=== PATIENT | female | born 1945 | race Caucasian/White ===

== ENCOUNTER → 2016-07-19 | Outpatient (REF) | payer MEDICARE, OTHER ==
[2016-07-19 11:51] LABS: MEAN CORPUSCULAR HEMOGLOBIN 33.3 pg (27.0-33.0); MEAN CORPUSCULAR HGB CONC 34.5 g/dl (32.0-36.5); MEAN CORPUSCULAR VOLUME 96.7 fl (80.0-96.0); RED CELL DISTRIBUTION WIDTH 12.3 % (11.5-14.5)
[2016-07-19 12:50] LABS: ALKALINE PHOSPHATASE 96 U/L (45-117); ALT/SGPT 25 U/L (12-78); ANION GAP 9 MEQ/L (8-16); AST/SGOT 17 U/L (15-37); BILIRUBIN,TOTAL 0.6 MG/DL (0.2-1.0); BLOOD UREA NITROGEN 16 MG/DL (7-18); CALCIUM LEVEL 8.8 MG/DL (8.8-10.2); CARBON DIOXIDE LEVEL 28 MEQ/L (21-32); CHLORIDE LEVEL 105 MEQ/L (98-107); CHOLESTEROL LEVEL 169 MG/DL (<200); CREATININE FOR GFR 0.77 MG/DL (0.55-1.02); GLOMERULAR FILTRATION RATE > 60.0 (>39); GLUCOSE, FASTING 109 MG/DL (83-110); SODIUM LEVEL 142 MEQ/L (136-145); TOTAL PROTEIN 6.5 GM/DL (6.4-8.2); TRIGLYCERIDES LEVEL 68 MG/DL (<150)
== END ==
LOC: M SFHCCLAY 09:04
PROVIDERS: ATTEND Family Medicine
DX: E78.00 Pure hypercholesterolemia, unspecified (principal); C50.919 Malignant neoplasm of unspecified site of unspecified female breast

== ENCOUNTER → 2016-09-21 | Outpatient (CLI) | payer MEDICARE, OTHER ==
--- NOTE | 2016-09-22 07:54 | RADONC ---
RADIATION ONCOLOGY FOLLOW UP NOTE DATE: 09/21/2016 CHART NUMBER: [id number] DIAGNOSIS: Right breast cancer stage II A, T2N0M0, ECOG performance status zero. FOLLOWUP NOTE: Ms. 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 The patient presents today reporting that she is doing quite well with no complaints at this time related to her radiation therapy disease. She has no breast or bone pain. REVIEW OF SYSTEMS: The patient's review of systems is noncontributory. Denies nausea, vomiting, fevers, chills, night sweats, diplopia, headaches, anxiety or depression, anorexia, weight loss, visual disturbances, chest pain, urinary or bowel difficulties, bone pain, or neurological problems. PHYSICAL EXAMINATION: The patient is a well-developed, well-nourished 71-year-old woman in no acute distress. HEENT exam is normocephalic, atraumatic. Extraocular movements are intact. There is no palpable cervical, supraclavicular, infraclavicular, axillary, or inguinal lymphadenopathy present. Lungs are clear to auscultation and percussion. Heart has a regular rate and rhythm. Abdomen is benign with no hepatosplenomegaly, masses, or tenderness. Breast examination reveals no masses or discharge bilaterally. Skeletal examination reveals no tenderness to pressure or percussion of the bony skeleton. Extremities reveal no clubbing, cyanosis, or edema. Neurologic exam is grossly intact, as is the remainder of the physical examination. ASSESSMENT: The patient is clinically KAYY at this time and will be seen by us again in 6 months for further followup. She will also continue be followed by her other physicians as well. cc: *Roosevelt Ramos MD
== END ==
LOC: M ONCR 14:26
PROVIDERS: ATTEND Radiology Radiation Oncology
DX: C50.811 Malignant neoplasm of overlapping sites of right female breast (principal)

== ENCOUNTER → 2017-03-29 | Outpatient (CLI) | payer MEDICARE, OTHER ==
--- NOTE | 2017-03-30 09:20 | RADONC ---
RADIATION ONCOLOGY FOLLOWUP NOTE DATE: 03/29/2017 CHART NUMBER: [id number] DIAGNOSIS: Right breast cancer. STAGE: Stage II A, T2N0M0 ECOG PERFORMANCE SCORE: Zero FOLLOWUP NOTE: Ms. 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 She was presenting to us today for routine followup visit 1 year and 8 months post completion of external beam radiation therapy. The patient presents today reporting that she is doing quite well with no complaints at this time related to her radiation therapy or disease. She has no significant breast or bone pain. REVIEW OF SYSTEMS: The patient's review of systems is noncontributory. Denies nausea, vomiting, fevers, chills, night sweats, diplopia, headaches, anxiety or depression, anorexia, weight loss, visual disturbances, chest pain, urinary or bowel difficulties, bone pain, or neurological problems. PHYSICAL EXAMINATION: The patient is a well-developed, well-nourished female in no acute distress. HEENT exam is normocephalic, atraumatic. Extraocular movements are intact. There is no palpable cervical, supraclavicular, infraclavicular, axillary, or inguinal lymphadenopathy present. Lungs are clear to auscultation and percussion. Heart has a regular rate and rhythm. Abdomen is benign with no hepatosplenomegaly, masses, or tenderness. Breast examination reveals no masses or discharge bilaterally. Skeletal examination reveals no tenderness to pressure or percussion of the bony skeleton. Extremities reveal no clubbing, cyanosis, or edema. Neurologic exam is grossly intact, as is the remainder of the physical examination. ASSESSMENT: The patient is clinically KAYY at this time and will be seen by us again in 6 months for further followup. She will also continue to be followed by her other physicians as well. cc: Angela Gutierrez MD, FACP Alexander Schneider MD *Roosevelt Ramos MD
== END ==
LOC: M ONCR 13:27
PROVIDERS: ATTEND Radiology Radiation Oncology
DX: C50.811 Malignant neoplasm of overlapping sites of right female breast (principal)

== ENCOUNTER → 2018-09-21 | Outpatient (REF) | payer MEDICARE, OTHER ==
[~2018-09-21] MED LIST: ATOR1TAB19 PO; CALC1TAB11 PO; CENTTAB12 PO; CLON1TAB8 PO; GLUC1TAB45 PO; LETR2.5T2 PO; NARA2.5T PO; RELP40TA PO; VIAC8.5C PO; XIID5DRO OP
[2018-09-21 17:14] LABS: HEMOGLOBIN 15.6 g/dl (12.0-15.5); MEAN CORPUSCULAR HEMOGLOBIN 32.4 pg (27.0-33.0); MEAN CORPUSCULAR HGB CONC 33.9 g/dl (32.0-36.5); MEAN CORPUSCULAR VOLUME 95.6 fl (80.0-96.0); PLATELET COUNT, AUTOMATED 297 10^3/uL (150-450); RED BLOOD COUNT 4.81 10^6/uL (4.00-5.40)
[2018-09-21 17:23] LABS: ALT/SGPT 35 U/L (12-78); AMYLASE 29 U/L (25-115); BILIRUBIN,TOTAL 0.8 MG/DL (0.2-1.0); BLOOD UREA NITROGEN 12 MG/DL (7-18); CALCIUM LEVEL 9.1 MG/DL (8.8-10.2); CARBON DIOXIDE LEVEL 30 MEQ/L (21-32); CHLORIDE LEVEL 108 MEQ/L (98-107); GLOMERULAR FILTRATION RATE > 60.0 (>39); GLUCOSE, FASTING 92 MG/DL (70-100); LIPASE 172 U/L (73-393); POTASSIUM SERUM 3.9 MEQ/L (3.5-5.1); SODIUM LEVEL 143 MEQ/L (136-145); TOTAL PROTEIN 6.9 GM/DL (6.4-8.2)
== END ==
LOC: M SFHCCLAY 11:38
PROVIDERS: ATTEND Family Medicine
DX: K86.1 Other chronic pancreatitis (principal); K86.2 Cyst of pancreas; R53.82 Chronic fatigue, unspecified

== ENCOUNTER → 2018-09-26 | Outpatient (CLI) | payer MEDICARE, OTHER ==
[~2018-09-26] MED LIST changes: +GASTROGRAFIN SOLUTION 30ML (Q9963) As Ordered ONE; +ISOVUE-370 76% 100ML VIAL (Q9967) As Ordered ONE
--- NOTE | 2018-09-26 16:25 | REP ---
Clinical: Chronic pancreatitis. Pseudocyst. Technique: Axial contrast enhanced images of the abdomen using oral (per protocol) and 100 ml Isovue 370 intravenous contrast material with coronal and sagittal re-formations. Findings: There is a 1 cm simple appearing cyst within the distal body/proximal tail of the pancreas. The remainder of the pancreas is unremarkable. Fatty infiltration to the liver noted without focal hepatic lesion. Spleen, gallbladder, bilateral adrenal glands and kidneys are normal. Visualized enteric system is without obstruction or acute inflammatory process. A normal terminal ileum identified in the right lower abdomen. No ascites. No free air. No adenopathy. Abdominal aorta without aneurysm or dissection. Musculoskeletal structures are intact. Lung bases are clear. Impression: 1. 1 cm simple appearing cyst within the body/tail of the pancreas. Electronically Signed by Garret Schneider MD 09/26/2018 04:16 P
== END ==
LOC: M RAD 13:54
PROVIDERS: ATTEND Family Medicine
DX: K86.1 Other chronic pancreatitis (principal); K86.2 Cyst of pancreas
CPT/HCPCS: 74160; Q9963; Q9967

== ENCOUNTER → 2018-10-17 | Outpatient (REF) | payer MEDICARE, OTHER ==
[~2018-10-17] MED LIST changes: -GASTROGRAFIN SOLUTION 30ML (Q9963) As Ordered ONE; -ISOVUE-370 76% 100ML VIAL (Q9967) As Ordered ONE
[2018-10-17 11:49] LABS: BASO % 0.4 % (0.0-1.0); EOS # 0.2 10^3/uL (0.0-0.50); EOS % 3.2 % (0.0-3.0); HEMATOCRIT 46.7 % (36.0-47.0); HEMOGLOBIN 15.9 g/dl (12.0-15.5); LYMPH # 1.6 10^3/uL (1.5-4.5); LYMPH % 34.3 % (24.0-44.0); MEAN CORPUSCULAR HEMOGLOBIN 32.4 pg (27.0-33.0); MEAN CORPUSCULAR VOLUME 95.3 fl (80.0-96.0); MONO # 0.4 10^3/uL (0.0-0.8); MONO % 8.8 % (0.0-5.0); NEUTROPHILS # 2.5 10^3/uL (1.8-7.7); NEUTROPHILS % 53.1 % (36.0-66.0); PLATELET COUNT, AUTOMATED 294 10^3/uL (150-450); WHITE BLOOD COUNT 4.7 10^3/uL (4.0-10.0)
[2018-10-17 12:25] LABS: ALT/SGPT 48 U/L (12-78); AMYLASE 32 U/L (25-115); BILIRUBIN,DIRECT 0.2 MG/DL (0.0-0.2); BILIRUBIN,TOTAL 0.7 MG/DL (0.2-1.0); BLOOD UREA NITROGEN 13 MG/DL (7-18); GLOMERULAR FILTRATION RATE > 60.0 (>39); LIPASE 150 U/L (73-393); TOTAL PROTEIN 6.9 GM/DL (6.4-8.2)
== END ==
LOC: M LABDRAWC 11:13
PROVIDERS: ATTEND Internal Medicine Gastroenterology
DX: K85.90 Acute pancreatitis without necrosis or infection, unspecified (principal); R63.4 Abnormal weight loss

== ENCOUNTER → 2018-10-23 | Outpatient (CLI) | payer MEDICARE, OTHER ==
--- NOTE | 2018-10-23 17:36 | REP ---
MRI abdomen and pancreas without and with IV contrast: History: Acute pancreatitis. Recurrent abdominal pain and weight loss. Assess for chronic pancreatitis versus pancreatic mass and cyst. Comparison CT study September 26, 2018. MRI contrast dose: 11 ml of intravenous ProHance. MR technique: Axial and coronal T1 and T2-weighted scans include spin-echo, fast spin echo, in and [id number], and dynamically acquired T1 fat sat images. MRCP findings: T2-weighted scans confirm the presence of a 1.1 cm fluid-filled cyst in the tail of the pancreas corresponding to the CT findings. No other pancreatic lesion is appreciated. On sequential dynamically acquired post contrast images, there is no gadolinium enhancement within this. No hypervascular pancreatic lesion is appreciated. No liver lesion is appreciated. Peripancreatic soft tissues are unremarkable. No adrenal, splenic, or renal lesion is observed. Impression: 1.1 cm cyst in the pancreatic tail. No pancreatic ductal abnormality is seen. No pancreatic mass or peripancreatic edema seen. Electronically Signed by Jim Johnston MD 10/24/2018 07:57 A
--- NOTE | 2018-10-23 17:37 | REP ---
MRCP examination: History: Acute pancreatitis. Comparison is made with CT study from September 26, 2018. MRCP findings: There is a 1.1 cm cyst in the pancreatic tail. No focal liver lesion is seen. No definite filling defect is seen within the gallbladder. The intrahepatic and extrahepatic biliary tree is normal in caliber. Common bile duct measures only 2-3 mm. The main pancreatic duct is normal in caliber and contour as well. Impression: Small cyst in the tail of the pancreas. Otherwise normal MRCP exam. Electronically Signed by Jim Johnston MD 10/24/2018 07:57 A
== END ==
LOC: M RAD 14:21
PROVIDERS: ATTEND Internal Medicine Gastroenterology
DX: K86.2 Cyst of pancreas (principal); R10.30 Lower abdominal pain, unspecified; K85.90 Acute pancreatitis without necrosis or infection, unspecified
CPT/HCPCS: 74181; 74183; 76856; A9576

== ENCOUNTER → 2018-10-23 | Outpatient (CLI) | payer MEDICARE, OTHER ==
[~2018-10-23] MED LIST changes: +PROHANCE 279.3MG/ML 15ML VIAL (A9576) As Ordered ONE
--- NOTE | 2018-10-23 15:47 | REP ---
Clinical: Lower abdominal pain. Technique: Transabdominal pelvic ultrasound with color evaluation. Findings: Bladder is normal and measures 8.2 x 7.5 x 4.7 cm. Heterogeneous anteverted uterus measures 5.2 x 4.0 x 4.2 cm anterior subserosal hypoechoic lesions suggesting fibroid measures 1.5 x 2.2 x 1.2 cm. Posterior subserosal hypoechoic lesions suggesting fibroid measures 1.2 x 1.8 x 1.3 cm. The endometrium is poorly differentiated by ultrasound evaluation. Right ovary is not visualized. Left ovary is moderately prominent in size but otherwise unremarkable by ultrasound and measures 3.2 x 1.9 x 2.4 cm. No pelvic free fluid or adnexal mass lesion. Impression: Heterogeneous uterus with two suspected subserosal fibroids. Mildly prominent right ovary. Left ovary not visualized. Electronically Signed by Garret cShneider MD 10/23/2018 03:36 P
== END ==
LOC: M RAD 14:26
PROVIDERS: ATTEND Family Medicine
DX: R10.30 Lower abdominal pain, unspecified (principal)

== ENCOUNTER → 2020-03-13 | Outpatient (REF) | payer MEDICARE, OTHER ==
[~2020-03-13] MED LIST changes: -PROHANCE 279.3MG/ML 15ML VIAL (A9576) As Ordered ONE; -VIAC8.5C PO; +VIACTIV 500-5001 CHW PO
[2020-03-13 16:25] LABS: HEMATOCRIT 47.1 % (36.0-47.0); HEMOGLOBIN 15.4 g/dl (12.0-15.5); MEAN CORPUSCULAR HEMOGLOBIN 31.6 pg (27.0-33.0); MEAN CORPUSCULAR HGB CONC 32.7 g/dl (32.0-36.5); MEAN CORPUSCULAR VOLUME 96.5 fl (80.0-96.0); PLATELET COUNT, AUTOMATED 320 10^3/uL (150-450); RED BLOOD COUNT 4.88 10^6/uL (4.00-5.40); WHITE BLOOD COUNT 5.5 10^3/uL (4.0-10.0)
[2020-03-13 17:12] LABS: ALBUMIN 4.3 GM/DL (3.2-5.2); ALT/SGPT 31 U/L (12-78); BILIRUBIN,TOTAL 0.9 MG/DL (0.2-1.0); BLOOD UREA NITROGEN 16 MG/DL (7-18); CALCIUM LEVEL 9.4 MG/DL (8.8-10.2); CARBON DIOXIDE LEVEL 26 MEQ/L (21-32); CHLORIDE LEVEL 107 MEQ/L (98-107); CHOLESTEROL LEVEL 184 MG/DL (<200); CHOLESTEROL RISK RATIO 2.875 (<5); CREATININE FOR GFR 0.84 MG/DL (0.55-1.30); GLOMERULAR FILTRATION RATE > 60.0 (>39); GLUCOSE, FASTING 99 MG/DL (70-100); HDL CHOLESTEROL 64 MG/DL (>40); LDL CHOLESTEROL 98 MG/DL (<100); NON-HDL-C 120 MG/DL; POTASSIUM SERUM 4.3 MEQ/L (3.5-5.1); SODIUM LEVEL 141 MEQ/L (136-145); TOTAL PROTEIN 7.3 GM/DL (6.4-8.2); TRIGLYCERIDES LEVEL 111 MG/DL (<150)
== END ==
LOC: M SFHCCLAY 10:43
PROVIDERS: ATTEND Family Medicine
DX: M85.80 Other specified disorders of bone density and structure, unspecified site (principal); Z79.899 Other long term (current) drug therapy

== ENCOUNTER → 2020-08-21 | Outpatient (CLI) | payer MEDICARE, OTHER ==
--- NOTE | 2020-08-21 15:54 | REP ---
INDICATION: OSTEOARTHRITIS RIGHT KNEE. COMPARISON: None TECHNIQUE: 3T multiplanar MRI imaging of the right knee was obtained using various sequences. FINDINGS: The anterior and posterior horns of the medial meniscus are within normal limits. The anterior and posterior horns of the lateral meniscus are within normal limits. The anterior and posterior cruciate ligaments are intact. The quadriceps and patellar tendons are intact. The medial and lateral collateral ligaments are intact. The medial and lateral patellar retinacula are intact. There is thinning and irregularity of all articular cartilages. There is tricompartmental marginal osteophytosis and tricompartmental narrowing particularly affecting the lateral compartment and patellofemoral joint. There is no joint effusion or Portillo's cyst. Marrow signal is within normal limits. 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 There is no evidence of acute internal derangement <Electronically signed by Amadou Goodman > 08/21/20 [id number]
== END ==
LOC: M PLARAD 14:03
PROVIDERS: ATTEND Physician Assistant
DX: M17.11 Unilateral primary osteoarthritis, right knee (principal)

== ENCOUNTER → 2021-03-15 | Outpatient (REF) | payer MEDICARE, OTHER ==
[~2021-03-15] MED LIST changes: +AIMO70IN2 SQ; +CALC250T PO; +CENT1TAB9 PO; +FAMO20TA PO; +METO10TA2 PO
[2021-03-15 16:51] LABS: BASO % 0.5 % (0.0-1.0); EOS # 0.3 10^3/uL (0.0-0.5); EOS % 3.4 % (0.0-3.0); HEMATOCRIT 49.8 % (36.0-47.0); HEMOGLOBIN 16.3 g/dl (12.0-15.5); LYMPH # 2.5 10^3/uL (1.5-5.0); LYMPH % 31.2 % (24.0-44.0); MEAN CORPUSCULAR HEMOGLOBIN 31.5 pg (27.0-33.0); MEAN CORPUSCULAR HGB CONC 32.7 g/dl (32.0-36.5); MEAN CORPUSCULAR VOLUME 96.3 fl (80.0-96.0); MONO # 0.5 10^3/uL (0.0-0.8); MONO % 6.6 % (2.0-8.0); NEUTROPHILS # 4.6 10^3/uL (1.5-8.5); NEUTROPHILS % 58.2 % (36.0-66.0); PLATELET COUNT, AUTOMATED 317 10^3/uL (150-450); RED BLOOD COUNT 5.17 10^6/uL (4.00-5.40)
[2021-03-15 16:57] LABS: ALBUMIN 4.1 GM/DL (3.2-5.2); ALT/SGPT 35 U/L (12-78); BILIRUBIN,TOTAL 0.9 MG/DL (0.2-1.0); BLOOD UREA NITROGEN 18 MG/DL (7-18); CALCIUM LEVEL 9.5 MG/DL (8.8-10.2); CARBON DIOXIDE LEVEL 29 MEQ/L (21-32); CHLORIDE LEVEL 110 MEQ/L (98-107); CHOLESTEROL LEVEL 186 MG/DL (<200); CREATININE FOR GFR 0.88 MG/DL (0.55-1.30); FREE T4 0.98 NG/DL (0.76-1.46); GLOMERULAR FILTRATION RATE > 60.0 (>39); GLUCOSE, FASTING 106 MG/DL (70-100); HDL CHOLESTEROL 50 MG/DL (>40); LDL CHOLESTEROL 111 MG/DL (<100); NON-HDL-C 136 MG/DL; POTASSIUM SERUM 4.7 MEQ/L (3.5-5.1); SODIUM LEVEL 144 MEQ/L (136-145); TOTAL 25(OH) VITAMIN D 69.8 NG/ML (30.0-100.0); TOTAL PROTEIN 6.9 GM/DL (6.4-8.2); TRIGLYCERIDES LEVEL 127 MG/DL (<150)
== END ==
LOC: M SFHCCLAY 09:47
PROVIDERS: ATTEND Family Medicine
DX: M17.11 Unilateral primary osteoarthritis, right knee (principal); K22.4 Dyskinesia of esophagus; E78.00 Pure hypercholesterolemia, unspecified

== ENCOUNTER 2021-10-07 18:05 | Emergency (ER) | payer MEDICARE, OTHER ==
[~2021-10-07] VITALS: Ht 157.5 cm; Wt 60.0 kg
[2021-10-07 18:06] VITALS: BP 139/87
== END 2021-10-07 18:13 | disposition left against medical advice (07) ==
LOC: M ED 18:05
DX: Z53.21 Procedure and treatment not carried out due to patient leaving prior to being seen by health care provider (principal)

== ENCOUNTER → 2022-02-28 | Outpatient (CLI) | payer MEDICARE, OTHER | LOC: M CLY 15:43 | PROVIDERS: ATTEND Physician Assistant | DX: M25.511 Pain in right shoulder (principal); M54.2 Cervicalgia ==

== ENCOUNTER → 2022-12-30 | Outpatient (REF) | payer MEDICARE, OTHER ==
[2022-12-30 13:44] LABS: HEMATOCRIT 47.9 % (36.0-47.0); HEMOGLOBIN 16.2 g/dl (12.0-15.5); MEAN CORPUSCULAR HEMOGLOBIN 32.3 pg (27.0-33.0); MEAN CORPUSCULAR HGB CONC 33.8 g/dl (32.0-36.5); MEAN CORPUSCULAR VOLUME 95.6 fl (80.0-96.0); PLATELET COUNT, AUTOMATED 262 10^3/uL (150-450); RED BLOOD COUNT 5.01 10^6/uL (4.00-5.40); WHITE BLOOD COUNT 6.6 10^3/uL (4.0-10.0)
[2022-12-30 13:48] LABS: LIPASE 62 U/L (12-53)
[2022-12-30 13:51] LABS: ALBUMIN 3.7 G/DL (3.2-5.2); ALKALINE PHOSPHATASE 90 U/L (46-116); ALT/SGPT 25 U/L (7.0-40); AST/SGOT 14 U/L (<34); BILIRUBIN,TOTAL 0.9 MG/DL (0.3-1.2); BLOOD UREA NITROGEN 15 MG/DL (9-23); CARBON DIOXIDE LEVEL 26 MMOL/L (20-31); CHLORIDE LEVEL 111 MMOL/L (98-107); CHOLESTEROL LEVEL 154 MG/DL (<200); CHOLESTEROL RISK RATIO 2.93 (<5); CREATININE FOR GFR 0.77 MG/DL (0.55-1.30); GLOMERULAR FILTRATION RATE > 60.0 (>39); GLUCOSE, FASTING 103 MG/DL (74-106); HDL CHOLESTEROL 52.4 MG/DL (>40); LDL CHOLESTEROL 83.6 MG/DL (<100); NON-HDL-C 101.6 MG/DL; SODIUM LEVEL 145 MMOL/L (136-145); TOTAL PROTEIN 6.1 G/DL (5.7-8.2); TRIGLYCERIDES LEVEL 90 MG/DL (<150)
[2022-12-30 13:53] LABS: THYROID STIMULATING HORMONE 1.854 uIU/ML (0.55-4.78)
== END ==
LOC: M SFHCCLAY 08:25
PROVIDERS: ATTEND Family Medicine
DX: M85.80 Other specified disorders of bone density and structure, unspecified site (principal); E78.00 Pure hypercholesterolemia, unspecified; Z87.19 Personal history of other diseases of the digestive system; G43.009 Migraine without aura, not intractable, without status migrainosus

== ENCOUNTER → 2023-04-01 | Outpatient (REF) | payer MEDICARE, OTHER | LOC: M LAB REF 13:31 | PROVIDERS: ATTEND Nurse Practitioner Family | DX: R19.7 Diarrhea, unspecified (principal) ==

== ENCOUNTER 2023-04-10 13:08 | Day surgery (SDC) | payer MEDICARE, OTHER ==
[~2023-04-10] VITALS: Ht 157.5 cm; Wt 60.4 kg
[~2023-04-10 13:08] MED LIST changes: +BOTO10VL IM; +CENT1TAB PO; +ESTR1TAB PO; +NS 1,000 ML IV ONE; +REFR0.5D8 OP; +VITA200012 PO
[2023-04-10] MEDS ORDERED: MIDAZOLAM INJ 2MG/2ML VIAL As Ordered ONE (14:49)
[2023-04-10] MEDS ORDERED: propofoL 200 MG/20 ML VIAL As Ordered ONE (14:49)
[2023-04-10] MEDS ORDERED: LIDOCAINE 2% 100MG/5ML SDV (FOR ANES.) As Ordered ONE (14:49)
[2023-04-10 16:03] VITALS: BP 136/68; TEMP 96.8; O2SAT 95
== END 2023-04-10 16:08 | disposition home or self-care (01) ==
LOC: M OPP 13:08
PROVIDERS: ATTEND Internal Medicine Gastroenterology
DX: K44.9 Diaphragmatic hernia without obstruction or gangrene (principal); K29.70 Gastritis, unspecified, without bleeding; K20.90 Esophagitis, unspecified without bleeding; K22.2 Esophageal obstruction; K31.A0 Gastric intestinal metaplasia, unspecified; D17.5 Benign lipomatous neoplasm of intra-abdominal organs; R12 Heartburn; R11.2 Nausea with vomiting, unspecified; G47.9 Sleep disorder, unspecified; Z87.891 Personal history of nicotine dependence; Z79.02 Long term (current) use of antithrombotics/antiplatelets; Z79.1 Long term (current) use of non-steroidal anti-inflammatories (NSAID); Z79.810 Long term (current) use of selective estrogen receptor modulators (SERMs); Z79.899 Other long term (current) drug therapy; Z88.0 Allergy status to penicillin
CPT/HCPCS: 43239; 88305; J2250

== ENCOUNTER → 2023-09-07 | Outpatient (CLI) | payer MEDICARE, OTHER ==
[~2023-09-07] MED LIST changes: -NS 1,000 ML IV ONE; +PROHANCE 279.3MG/ML 5ML VIAL ONE
== END ==
LOC: M PLAIMG 08:56
PROVIDERS: ATTEND Internal Medicine Gastroenterology
DX: K86.2 Cyst of pancreas (principal)
CPT/HCPCS: 74183; A9576

== ENCOUNTER → 2023-09-15 | Outpatient (CLI) | payer MEDICARE, OTHER ==
[~2023-09-15] MED LIST changes: +E-Z-GAS II EFFERVESCENT PACKET (SODIUM BICARB./CITRIC ACID/SIMETHICONE) As Ordered ONE; +E-Z-HD 98% w/w 340GM SUSP BTL As Ordered ONE; +E-Z-PAQUE 96% w/w SUSP 176GM BTL As Ordered ONE; -PROHANCE 279.3MG/ML 5ML VIAL ONE
== END ==
LOC: M RAD 07:26
PROVIDERS: ATTEND Internal Medicine Gastroenterology
DX: K22.70 Barrett's esophagus without dysplasia (principal)

== ENCOUNTER → 2023-12-15 | Outpatient (REF) | payer MEDICARE, OTHER ==
[~2023-12-15] MED LIST changes: -E-Z-GAS II EFFERVESCENT PACKET (SODIUM BICARB./CITRIC ACID/SIMETHICONE) As Ordered ONE; -E-Z-HD 98% w/w 340GM SUSP BTL As Ordered ONE; -E-Z-PAQUE 96% w/w SUSP 176GM BTL As Ordered ONE
[2023-12-15 11:38] LABS: HEMATOCRIT 46.8 % (36.0-47.0); MEAN CORPUSCULAR HEMOGLOBIN 32.7 pg (27.0-33.0); MEAN CORPUSCULAR HGB CONC 34.2 g/dl (32.0-36.5); MEAN CORPUSCULAR VOLUME 95.7 fl (80.0-96.0); PLATELET COUNT, AUTOMATED 275 10^3/uL (150-450); RED BLOOD COUNT 4.89 10^6/uL (4.00-5.40); WHITE BLOOD COUNT 6.5 10^3/uL (4.0-10.0)
[2023-12-15 12:02] LABS: ALKALINE PHOSPHATASE 103 U/L (46-116); ALT/SGPT 27 U/L (7.0-40); AST/SGOT 19 U/L (<34); BILIRUBIN,TOTAL 1.3 MG/DL (0.3-1.2); BLOOD UREA NITROGEN 14 MG/DL (9-23); CALCIUM LEVEL 9.3 MG/DL (8.3-10.6); CARBON DIOXIDE LEVEL 29 MMOL/L (20-31); CHLORIDE LEVEL 109 MMOL/L (98-107); CHOLESTEROL LEVEL 157 MG/DL (<200); CHOLESTEROL RISK RATIO 3.39 (<5); CREATININE FOR GFR 0.86 MG/DL (0.55-1.30); GLOMERULAR FILTRATION RATE > 60.0 (>32); GLUCOSE, FASTING 96 MG/DL (74-106); HDL CHOLESTEROL 46.2 MG/DL (>40); LDL CHOLESTEROL 86.8 MG/DL (<100); NON-HDL-C 110.8 MG/DL; POTASSIUM SERUM 4.2 MMOL/L (3.5-5.1); SODIUM LEVEL 142 MMOL/L (136-145); TOTAL PROTEIN 6.6 G/DL (5.7-8.2); TRIGLYCERIDES LEVEL 120 MG/DL (<150)
[2023-12-15 12:06] LABS: FREE T4 1.25 NG/DL (0.89-1.76); THYROID STIMULATING HORMONE 5.649 uIU/ML (0.55-4.78)
== END ==
LOC: M SFHCCLAY 08:16
PROVIDERS: ATTEND Family Medicine
DX: M85.80 Other specified disorders of bone density and structure, unspecified site (principal); E78.00 Pure hypercholesterolemia, unspecified; M17.11 Unilateral primary osteoarthritis, right knee; K22.4 Dyskinesia of esophagus; G43.009 Migraine without aura, not intractable, without status migrainosus; Z87.19 Personal history of other diseases of the digestive system

== ENCOUNTER → 2024-04-02 | Outpatient (CLI) | payer MEDICARE, OTHER | LOC: M WHC 14:24 | PROVIDERS: ATTEND Family Medicine | DX: Z78.0 Asymptomatic menopausal state (principal); M85.88 Other specified disorders of bone density and structure, other site ==

== ENCOUNTER → 2024-12-12 | Outpatient (REF) | payer MEDICARE, OTHER ==
[~2024-12-12] MED LIST changes: +LIFI1DRO4 OP; -XIID5DRO OP
[2024-12-12 18:51] LABS: ALT/SGPT 29.0 U/L (7.0-40); AST/SGOT 28.0 U/L (<34); CALCIUM LEVEL 9.4 MG/DL (8.3-10.6); CARBON DIOXIDE LEVEL 26.0 MMOL/L (20-31); CHLORIDE LEVEL 105.0 MMOL/L (98-107); CHOLESTEROL LEVEL 155.0 MG/DL (<200); CHOLESTEROL RISK RATIO 2.91 (<5); CREATININE FOR GFR 0.71 MG/DL (0.55-1.30); GLOMERULAR FILTRATION RATE 85.4 (>32); LDL CHOLESTEROL 83.7 MG/DL (<100); NON-HDL-C 101.9 MG/DL; POTASSIUM SERUM 4.1 MMOL/L (3.5-5.1); SODIUM LEVEL 142.0 MMOL/L (136-145); TRIGLYCERIDES LEVEL 91.0 MG/DL (<150)
[2024-12-12 18:52] LABS: FREE T4 1.17 NG/DL (0.89-1.76)
[2024-12-12 19:10] LABS: ESTIMATED AVERAGE GLUCOSE 108.0 MG/DL (60-110)
== END ==
LOC: M SFHCCLAY 11:25
PROVIDERS: ATTEND Nurse Practitioner Family
DX: G43.009 Migraine without aura, not intractable, without status migrainosus (principal); E78.00 Pure hypercholesterolemia, unspecified; N95.2 Postmenopausal atrophic vaginitis; E03.8 Other specified hypothyroidism; I10 Essential (primary) hypertension; K22.70 Barrett's esophagus without dysplasia; K14.6 Glossodynia; Z79.899 Other long term (current) drug therapy

== ENCOUNTER 2025-01-09 09:22 | Day surgery (SDC) | payer MEDICARE, OTHER ==
[~2025-01-09] VITALS: Ht 157.5 cm; Wt 62.4 kg
[~2025-01-09 09:22] MED LIST changes: +BOTO200I; +COFF1CAP3 PO; +LIFI1DRO4; -LIFI1DRO4 OP; +LISI10TA22 PO; +PRAM0.123 PO; +REFR0.5D8; -REFR0.5D8 OP
[2025-01-09 11:20] VITALS: BP 158/74; TEMP 98.6; O2SAT 99
== END 2025-01-09 11:25 | disposition home or self-care (01) ==
LOC: M OPP 09:22
PROVIDERS: ATTEND Internal Medicine Gastroenterology
DX: K44.9 Diaphragmatic hernia without obstruction or gangrene (principal); K22.2 Esophageal obstruction; K22.70 Barrett's esophagus without dysplasia; R11.10 Vomiting, unspecified; R13.10 Dysphagia, unspecified; G47.30 Sleep apnea, unspecified; Z88.0 Allergy status to penicillin; Z88.1 Allergy status to other antibiotic agents; Z88.8 Allergy status to other drugs, medicaments and biological substances; Z91.048 Other nonmedicinal substance allergy status; Z79.899 Other long term (current) drug therapy
CPT/HCPCS: 43239; 43249; 88305; J3010